=== PATIENT | female | born 1975 | race Caucasian/White ===

== ENCOUNTER 2024-09-25 10:29 | Emergency (ER) | payer SELFPAY ==
[2024-09-25] MEDS: Sodium Chloride 0.9% 1,000 ML IV ONE (10:59)
[2024-09-25] MEDS: Ondansetron 4 MG Tab.DIS PO ONE (10:59)
[2024-09-25 11:03] LABS: BASOPHILS ABSOLUTE AUTO 0.03 10^3/uL (0.00-0.50); BASOPHILS PERCENT AUTO 0.2 % (0-1); EOSINOPHILS PERCENT AUTO 0.8 % (0-6); HEMATOCRIT 41.1 % (37.0-47.0); HEMOGLOBIN 13.9 g/dL (12.0-16.0); IMMATURE GRAN ABSOLUTE AUTO 0.03 10^3/uL (0.00-0.49); IMMATURE GRAN PERCENT AUTO 0.2 % (0.0-4.9); LYMPHOCYTES ABSOLUTE AUTO 1.46 10^3/uL (0.60-5.00); LYMPHOCYTES PERCENT AUTO 11.6 % (24-44); MEAN CORPUSCULAR HEMOGLOBIN 30.3 pg (27.0-32.0); MEAN CORPUSCULAR HGB CONC 33.8 g/dL (32.0-36.0); MEAN CORPUSCULAR VOLUME 89.7 fL (83.0-97.0); NEUTROPHILS ABSOLUTE AUTO 10.52 x10^3/uL (1.80-8.00); NEUTROPHILS PERCENT AUTO 83.2 % (41-71); PLATELET COUNT,PLT 268 10^3/uL (150-400); RED BLOOD CELL COUNT 4.58 x10^6/uL (4.00-5.50); WHITE BLOOD CELL COUNT,WBC 12.6 10^3/uL (4.0-11.0)
[2024-09-25] MEDS: levETIRAcetam 500 MG/5 ML SDV IVPUSH ONE (11:13)
[2024-09-25 11:25] LABS: ALANINE AMINOTRANSFERASE,ALT 27 U/L (12-78); ALBUMIN 3.2 g/dL (3.4-5.0); ALKALINE PHOSPHATASE 105 U/L (46-116); ASPARTATE AMNIOTRANSFERASE,AST 26 U/L (15-37); BILIRUBIN TOTAL 0.3 mg/dL (0.0-1.0); BLOOD UREA NITROGEN,BUN 15 mg/dL (7-18); CARBON DIOXIDE,CO2 24 mmol/L (21-32); CHLORIDE,CL 102 mEq/L (98-106); CREATININE 0.6 mg/dL (0.6-1.0); EST CRCL DRUG DOSING (CG) 111.51 mL/min; ESTIMATED GFR 111 mL/min (>=60); ETHANOL BLOOD MEDICAL 55 mg/dL (0-3); GLUCOSE RANDOM 100 mg/dL (75-99); MAGNESIUM 1.3 mg/dL (1.8-2.4); POTASSIUM,K 3.9 mEq/L (3.5-5.0); PROTEIN TOTAL,TP 7.8 g/dL (6.4-8.2); SODIUM,NA 141 mEq/L (136-145)
[2024-09-25 12:26] LABS: APPEARANCE,URINE CLEAR (CLEAR); BILIRUBIN,URINE NEGATIVE (NEGATIVE); COLOR,URINE YELLOW (YELLOW); GLUCOSE,URINE NEGATIVE (NEGATIVE); KETONES,URINE NEGATIVE (NEGATIVE); LEUKOCYTE ESTERASE,URINE LARGE (NEGATIVE); NITRITE,URINE NEGATIVE (NEGATIVE); OCCULT BLOOD,URINE SMALL (NEGATIVE); PH,URINE 5.5 (4.5-8.0); PROTEIN,URINE NEGATIVE (NEGATIVE); UROBILINOGEN,URINE 0.2 EU/dL (0.2-1.0)
[2024-09-25 12:54] LABS: BACTERIA,URINE MODERATE /HPF (NOT SEEN); EPITHELIAL CELLS,URINE OCCASIONAL /HPF (NOT SEEN); MUCUS,URINE OCCASIONAL /HPF (NOT SEEN); RBC,URINE 0-5 /HPF (0-5); WBC,URINE 40-50 /HPF (0-5)
[2024-09-25] MEDS: cefTRIAXone 1 GM Vial IVPUSH ONE (13:06)
[2024-09-25] MEDS: Ketorolac 30 MG/ML SDV IVPUSH ONE (13:08)
== END 2024-09-25 13:35 | disposition home or self-care (01) ==
LOC: EDBD 10:29 → CC.ED 10:29
DX: N30.91 Cystitis, unspecified with hematuria (principal); Z88.8 Allergy status to other drugs, medicaments and biological substances; Z79.899 Other long term (current) drug therapy
CPT/HCPCS: 36415; 71045; 80053; 80307; 81001; 83735; 84484; 85025; 86140; 87086; 87088; 87186; 93005; 93010; 96361; 96374; 96375; 99284; 99285-25; A9270-GY; J0696; J1885; J1953; J7030

== ENCOUNTER 2024-10-03 07:40 | Emergency (ER) | payer SELFPAY ==
[2024-10-03] MEDS ORDERED: Sodium Chloride 0.9% 10 ML Syringe FLUSH PRN (08:13)
[2024-10-03] MEDS: Ondansetron 4 MG/2 ML SDV IVPUSH STA (09:30)
[2024-10-03] MEDS: LORazepam 2 MG/ML SDV IVPUSH ONE (09:52)
[2024-10-03] MEDS: Sodium Chloride 0.9% 1,000 ML IV ONE (09:53)
[2024-10-03 10:34] LABS: BASOPHILS ABSOLUTE AUTO 0.02 10^3/uL (0.00-0.50); BASOPHILS PERCENT AUTO 0.2 % (0-1); EOSINOPHILS ABSOLUTE AUTO 0.02 10^3/uL (0.00-1.50); EOSINOPHILS PERCENT AUTO 0.2 % (0-6); HEMATOCRIT 39.6 % (37.0-47.0); HEMOGLOBIN 13.4 g/dL (12.0-16.0); IMMATURE GRAN ABSOLUTE AUTO 0.02 10^3/uL (0.00-0.49); IMMATURE GRAN PERCENT AUTO 0.2 % (0.0-4.9); LYMPHOCYTES ABSOLUTE AUTO 1.17 10^3/uL (0.60-5.00); LYMPHOCYTES PERCENT AUTO 13.2 % (24-44); MEAN CORPUSCULAR HGB CONC 33.8 g/dL (32.0-36.0); MEAN CORPUSCULAR VOLUME 88.6 fL (83.0-97.0); MONOCYTES ABSOLUTE AUTO 0.75 10^3/uL (0.00-1.50); MONOCYTES PERCENT AUTO 8.5 % (0-10); NEUTROPHILS ABSOLUTE AUTO 6.86 x10^3/uL (1.80-8.00); NEUTROPHILS PERCENT AUTO 77.7 % (41-71); PLATELET COUNT,PLT 163 10^3/uL (150-400); RED BLOOD CELL COUNT 4.47 x10^6/uL (4.00-5.50); WHITE BLOOD CELL COUNT,WBC 8.8 10^3/uL (4.0-11.0)
[2024-10-03 10:53] LABS: APPEARANCE,URINE CLOUDY (CLEAR); BILIRUBIN,URINE SMALL (NEGATIVE); COLOR,URINE DARK YELLOW (YELLOW); GLUCOSE,URINE NEGATIVE (NEGATIVE); KETONES,URINE 80 mg/dL (NEGATIVE); LEUKOCYTE ESTERASE,URINE LARGE (NEGATIVE); NITRITE,URINE NEGATIVE (NEGATIVE); OCCULT BLOOD,URINE MODERATE (NEGATIVE); PROTEIN,URINE 100 mg/dL (NEGATIVE); UROBILINOGEN,URINE 0.2 EU/dL (0.2-1.0)
[2024-10-03 10:57] LABS: AMPHETAMINES,URINE NEGATIVE (NEGATIVE); BARBITURATES,URINE NEGATIVE (NEGATIVE); BENZODIAZEPINE,URINE POSITIVE (NEGATIVE); MDMA (ECSTASY), URINE NEGATIVE (NEGATIVE); METHADONE,URINE NEGATIVE (NEGATIVE); METHAMPHETAMINES,URINE NEGATIVE (NEGATIVE); OPIATES,URINE NEGATIVE (NEGATIVE); OXYCODONE,URINE NEGATIVE (NEGATIVE); PHENCYCLIDINE,URINE NEGATIVE (NEGATIVE); TCA,URINE NEGATIVE (NEGATIVE)
[2024-10-03 11:04] LABS: BACTERIA,URINE MODERATE /HPF (NOT SEEN); SQUAMOUS EPITHELIAL CELLS,UR NOT SEEN /HPF (NOT SEEN); WBC,URINE >100 /HPF (0-5)
[2024-10-03] MEDS: levETIRAcetam 500 MG Tab PO ONE (11:05)
[2024-10-03] MEDS: cefTRIAXone 1 GM Vial IVPUSH ONE (11:11)
[2024-10-03 11:18] LABS: ALANINE AMINOTRANSFERASE,ALT 38 U/L (12-78); ALBUMIN 3.1 g/dL (3.4-5.0); ALKALINE PHOSPHATASE 125 U/L (46-116); ASPARTATE AMNIOTRANSFERASE,AST 36 U/L (15-37); BILIRUBIN TOTAL 1.2 mg/dL (0.0-1.0); BLOOD UREA NITROGEN,BUN 11 mg/dL (7-18); CALCIUM 7.6 mg/dL (8.4-10.1); CARBON DIOXIDE,CO2 25 mmol/L (21-32); CHLORIDE,CL 97 mEq/L (98-106); CREATININE 0.5 mg/dL (0.6-1.0); EST CRCL DRUG DOSING (CG) 133.81 mL/min; GLUCOSE RANDOM 73 mg/dL (75-99); MAGNESIUM 0.9 mg/dL (1.8-2.4); POTASSIUM,K 3.6 mEq/L (3.5-5.0); PROTEIN TOTAL,TP 6.8 g/dL (6.4-8.2); SODIUM,NA 138 mEq/L (136-145)
[2024-10-03 11:26] LABS: ESTIMATED GFR 116 mL/min (>=60); ETHANOL BLOOD MEDICAL < 3 mg/dL (0-3)
[2024-10-03] MEDS: Folic Acid 1 MG, Multivitamins 1 TAB, Thiamine 100 MG, Magnesium Oxide 400 MG PO ONE (11:50)
== END 2024-10-03 13:37 | disposition home or self-care (01) ==
LOC: CC.ED 07:40
DX: F10.20 Alcohol dependence, uncomplicated (principal); N30.01 Acute cystitis with hematuria; I10 Essential (primary) hypertension; Z86.69 Personal history of other diseases of the nervous system and sense organs; Z79.899 Other long term (current) drug therapy; Z88.8 Allergy status to other drugs, medicaments and biological substances; Y90.0 Blood alcohol level of less than 20 mg/100 ml
CPT/HCPCS: 36415; 80053; 80305; 80307; 81001; 81025; 83735; 85025; 86140; 96361; 96374; 96375; 99284; A9270; J0696; J2060; J2405; J7030